=== PATIENT | female | born 1955 | race Caucasian/White ===

== ENCOUNTER 2018-04-15 15:26 | Emergency (ER) | payer MEDICAID ==
[~2018-04-15] VITALS: Ht 180.3 cm; Wt 86.4 kg
[2018-04-15] MEDS ORDERED: TRIA10PO2 TP (15:49)
[2018-04-15] MEDS ORDERED: OXYC5CAP2 PO (15:49)
[2018-04-15] MEDS ORDERED: CYAN1LOZ PO (15:49)
[2018-04-15] MEDS ORDERED: METO25TA35 PO (15:49)
[2018-04-15] MEDS ORDERED: GABA600T2 PO (15:49)
[2018-04-15] MEDS ORDERED: HYDR25TA11 PO (15:49)
[2018-04-15] MEDS ORDERED: LEVO75TA PO (15:49)
[2018-04-15] MEDS ORDERED: SERT50TA5 PO (15:49)
[2018-04-15] MEDS ORDERED: HYDR28OI3 TP (15:49)
[2018-04-15] MEDS ORDERED: IBUP-1223 PO (15:49)
[2018-04-15] MEDS ORDERED: ALBU18HF INH (15:49)
[2018-04-15 16:26] LABS: BASOPHILS # (AUTO) 0.04 x10^3/uL (0-0.1); BASOPHILS % (AUTO) 1 % (0-1); EOSINOPHILS # (AUTO) 0.17 x10^3/uL (0-0.4); EOSINOPHILS % (AUTO) 3 % (1-7); LYMPHOCYTES # (AUTO) 2.25 x10^3/uL (1-3.4); LYMPHOCYTES % (AUTO) 36 % (22-44); MD NO; MEAN CORPUSCULAR HEMOGLOBIN 33.7 pg (27.0-34.8); MEAN CORPUSCULAR HGB CONC 34.4 g/dL (32.4-35.8); MEAN CORPUSCULAR VOLUME 97.8 fL (80-100); MEAN PLATELET VOLUME 7.7 fL (7.4-10.4); MONOCYTES # (AUTO) 0.54 x10^3/uL (0.2-0.8); MONOCYTES % (AUTO) 9 % (2-9); NEUTROPHILS # (AUTO) 3.25 x10^3/uL (1.8-6.8); NEUTROPHILS % (AUTO) 52 % (42-75); PLATELET COUNT 224 x10^3/uL (130-400); RED BLOOD COUNT 4.66 x10^6/uL (3.82-5.3); RED CELL DISTRIBUTION WIDTH 12.5 % (9.6-15.2)
[2018-04-15] MEDS ORDERED: MECLIZINE CHEWABLE 25 MG TAB ONE (16:27)
[2018-04-15] MEDS ORDERED: MECLIZINE CHEWABLE 25 MG TAB PO ONE (16:30)
[2018-04-15 16:38] LABS: ALBUMIN 3.9 g/dL (3.4-5.0); ANION GAP 12 mmol/L (5-15); CALCIUM 9.4 mg/dL (8.5-10.1); CHLORIDE 101 mmol/L (98-107); CREATININE 0.74 mg/dL (0.55-1.02)
[2018-04-15] MEDS ORDERED: DIAZEPAM 5 MG TABLET ONE (17:29)
[2018-04-15] MEDS ORDERED: DIAZEPAM 5 MG TABLET PO ONE (17:30)
[2018-04-15 20:21] VITALS: BP 153/93
== END 2018-04-15 20:24 | disposition home or self-care (01) ==
LOC: ED 17:48
DX: H81.391 Other peripheral vertigo, right ear (principal); H81.11 Benign paroxysmal vertigo, right ear; E03.9 Hypothyroidism, unspecified; I10 Essential (primary) hypertension; R51 Headache
CPT/HCPCS: 36415; 70450; 70551; 80048; 82040; 85025; 93005; 99285